=== PATIENT | female | born 1990 | race African-American/Black ===

== ENCOUNTER 2019-04-06 22:27 | Inpatient (IN) | payer MEDICAID ==
[~2019-04-06] VITALS: Ht 172.7 cm; Wt 52.6 kg
[2019-04-06 22:35] VITALS: Ht 172.7 cm; Wt 52.6 kg
--- NOTE | 2019-04-06 22:44 | NUR ---
RT CALLED TO BED 14 FOR TREATMENT
--- NOTE | 2019-04-06 22:59 | NUR ---
PT SITTING UP IN BED WITH BREATHING TRX IN PROGRESS. PER FAMILY, PT HAS HAD SORE THROAT WITH CONGESTED COUGH X 3 DAYS WITH SOB AND N/V STARTING THIS AM. FAMILY STATES NO RELIEF OF SYMPTOMS WITH MEDICATIONS AT HOME. FAMILY DENIES ANY DIARRHEA/CONSTIPATION, FEVER, OR URINARY PROBLEMS AT THIS TIME. PT NOTED WITH LABORED BREATHING. PT PLACED ON MONITOR. RT AT BEDSIDE.
[2019-04-06 23:49] LABS: CALCIUM 9.3 mg/dL (8.5-10.1); CARBON DIOXIDE 29.8 mmol/L (21-32); CREATININE SERUM 1.2 mg/dL (0.6-1.0); POTASSIUM SERUM 3.8 mmol/L (3.5-5.1)
[2019-04-06 23:59] LABS: ALBUMIN 4.1 g/dL (3.4-5.0); BILIRUBIN TOTAL 0.4 mg/dL (0.20-1.00); TOTAL PROTEIN, SERUM 8.9 g/dL (6.4-8.2)
[2019-04-07] VITALS (7 sets, daily range): BP systolic 124–154; BP diastolic 73–88
--- NOTE | 2019-04-07 | NUR ---
PT SITTING UP WITH BREATHING TRX IN PROGRESS. FAMILY AT BEDSIDE.
[2019-04-07 00:10] LABS: BASOPHIL % 0.2 % (0-2); PLATELET COUNT 294 x10^3mcL (130-400); RED CELL DISTRIBUTION WIDTH 14.8 % (11.5-14.5)
--- NOTE | 2019-04-07 01:04 | NUR ---
PT RESTING IN BED WITH EYES CLOSED WITH NO SIGNS OF DISTRESS. SISTER AT BEDSIDE.
[2019-04-07] MEDS ORDERED: ALBUTEROL0.63 MG/3 NEB (01:21)
--- NOTE | 2019-04-07 01:35 | NUR ---
REPORT GIVEN TO ALICIA MARTIN.
[2019-04-07 01:53] LABS: MAGNESIUM 1.9 mg/dL (1.8-2.4); PHOSPHOROUS 2.1 mg/dL (2.5-4.9)
--- NOTE | 2019-04-07 02:30 | NUR ---
PT RECIEVED FROM ED, VIA [facility] ACCOMPANIED BY NURSE. PT AMBULATED FROM [facility] TO BED. PT A/OX4, CALM AND COOPERATIVE. DENIES PAIN OR DISCOMFORT AT THIS TIME. TELE 13, SINUS TACH. DENIES CP, NV, DIZZINESS, OR PALPATATIONS. PALPABLE PULSES, NO EDEMA NOTED. BREATHING E/U ON 4L NC. ABD SOFT AND ROUND, DENIES PAIN TO PALPATION. IV TO LAC, INTACT. BED AT LOWEST POSITION. CALL LIGHT WITHIN REACH. WILL CONTINUE TO MONITOR.
--- NOTE | 2019-04-07 06:22 | NUR ---
PT RESTING AT SIDE OF BED AT THIS TIME. BREATHING E/U ON 4L NC. NO SIGNS OF ACUTE DISTRESS NOTED. WILL ENDORSE TO DAY NURSE.
[2019-04-07 06:33] LABS: PLATELET COUNT 293 x10^3mcL (130-400)
[2019-04-07 06:44] LABS: CALCIUM 8.8 mg/dL (8.5-10.1); CARBON DIOXIDE 23.3 mmol/L (21-32); CHLORIDE SERUM 100 mmol/L (98-107); CREATININE SERUM 1.1 mg/dL (0.6-1.0); GFR1 > 60 mL/min; GLUCOSE SERUM 216 mg/dL (74-106); MAGNESIUM 1.9 mg/dL (1.8-2.4); PHOSPHOROUS 2.9 mg/dL (2.5-4.9); POTASSIUM SERUM 4.2 mmol/L (3.5-5.1); SODIUM SERUM 134 mmol/L (136-145)
[2019-04-07 06:52] LABS: BASOPHIL % 0 % (0-2); RED CELL DISTRIBUTION WIDTH 15.2 % (11.5-14.5)
--- NOTE | 2019-04-07 07:25 | NUR ---
RECEIVED PT RESTING IN BED. NO ACUTE DISTRESS. AAOX4. RESP EVEN AND UNLABORED ON 4L NC. PT REPORTS FEELING "A LITTLE TIGHT" BUT MUCH BETTER. RT PROTOCOL. IV TO LAC, NO REDNESS OR SWELLING TO IV SITE. VISITOR AT BEDSIDE. BED IN LOW POSITION, CALL LIGHT WITHIN REACH. WILL CONTINUE TO MONITOR.
--- NOTE | 2019-04-07 11:30 | NUR ---
PT RESTING IN BED. NO ACUTE DISTRESS. GETTING BREATHING TREATMENT AT THIS TIME. RESP EVEN AND UNLABORED. RT PROTOCOL. IV TO LAC, NO REDNESS OR SWELLING NOTED. HOB ELEVATED. CALL LIGHT WITHIN REACH. WILL CONTINUE TO MONITOR.
--- NOTE | 2019-04-07 14:54 | NUR ---
Discount pharmacy card and list to low cost medical clinics given to patient by Rosalba Ring.
--- NOTE | 2019-04-07 15:38 | NUR ---
PT IN NO ACUTE DISTRESS. SLEEPING BUT AROUSABLE. BREATHING EVEN AND UNLABORED ON 4L NC AT REST. RT PROTOCOL. IV TO LAC, NO REDNESS OR SWELLING. HOB ELEVATED. CALL LIGHT WITHIN REACH. WILL CONTINUE TO MONITOR.
[2019-04-07 17:59] LABS: microscopic required? YES; urine erythrocyte 3+ (NEGATIVE)
--- NOTE | 2019-04-07 18:29 | NUR ---
PT SITTING UP IN BED. NO ACUTE DISTRESS. RESP EVEN AND UNLABORED ON 4L NC. RT PROTOCOL. IV TO LAC, NO REDNESS OR SWELLING TO IV SITE. FAMILY AT BEDSIDE. HOB ELEVATED. BED IN LOW POSITION, CALL LIGHT WITHIN REACH. WILL ENDORSE TO ONCOMING SHIFT.
--- NOTE | 2019-04-07 19:30 | NUR ---
PT RESTING IN BED AT THIS TIME. DENIES PAIN OR DISCOMFORT. BREATHING E/U ON 3L NC, TIRATED FROM 4. SPO2 96%. TELE 13, ST. DENIES CP, NV, DIZZINESS, AND PALPATATIONS. ABD SOFT AND ROUND, DENIES PAIN TO PALPATION. IV TO LAC, CDI. BED AT LOWEST POSITION. CALL LIGHT WITHIN REACH. WILL CONTINUE TO MONITOR.
[2019-04-08 04:23] VITALS: BP 139/83
[2019-04-08 06:23] LABS: BASOPHIL % 0.1 % (0-2); PLATELET COUNT 317 x10^3mcL (130-400)
--- NOTE | 2019-04-08 06:39 | NUR ---
PT RESTING IN BED AT THIS TIME. DENIES PAIN OR DISCOMFORT. BREATHING E/U ON RA. SP2 95. ALL NEEDS AND CONCERNS ADDRESSED THIS SHIFT. BED AT LOWEST POSITION. CALL LIGHT WITHIN REACH. WILL ENDORSE TO DAY.
[2019-04-08 06:55] LABS: CALCIUM 9.4 mg/dL (8.5-10.1); CARBON DIOXIDE 29.6 mmol/L (21-32); CHLORIDE SERUM 105 mmol/L (98-107); GFR1 > 60 mL/min; GLUCOSE SERUM 206 mg/dL (74-106); MAGNESIUM 2.6 mg/dL (1.8-2.4); POTASSIUM SERUM 4.7 mmol/L (3.5-5.1); SODIUM SERUM 141 mmol/L (136-145)
--- NOTE | 2019-04-08 07:26 | NUR ---
RECEIVED PT SITTING UP IN BED. REPORTS VERY SMALL AMOUNT OF EMESIS. PT OFFERED ICE CHIPS AND ANTI-NAUSEA MEDICATION BUT REFUSED AT THIS TIME. HOB ELEVATED. BREATHING EVEN AND UNLABORED ON RA. RT PROTOCOL. FAMILY AT BEDSIDE. BED IN LOW POSITION, CALL LIGHT WITHIN REACH. WILL CONTINUE TO MONITOR.
[2019-04-08 08:59] VITALS: BP 150/100
[2019-04-08] MEDS ORDERED: ADV250/50 INH (09:17)
[2019-04-08] MEDS ORDERED: MONTELUKAST SOD10 M1 PO (09:17)
[2019-04-08] MEDS ORDERED: PREDNISONE20 MG PO (09:18)
[2019-04-08] MEDS ORDERED: ROBL PO (09:18)
[2019-04-08] MEDS ORDERED: LEVOFLOXACIN500 M1 PO (09:19)
[2019-04-08 09:34] VITALS: BP 149/96
[2019-04-08 09:48] VITALS: BP 149/96
--- NOTE | 2019-04-08 10:57 | NUR ---
PT DISCHARGED TO HOME IN NO ACUTE DISTRESS. AWAKE, ALERT, AND ORIENTED. VSS. TRANSPORTED VIA WHEELCHAIR. PT WITH ELECTRONIC RX SENT TO PREFERRED PHARMACY. DISCHARGE EDUCATION PROVIDED, PT VERBALIZED UNDERSTANDING. INSTRUCTED PT TO FOLLOW UP WITH PCP. IV DC'D WITH CATHETER INTACT. TELE REMOVED. BELONGINGS WITH PT. DAISY DARLING ACCOMPANIED PT TO LOBBY.
== END 2019-04-08 10:59 | disposition home or self-care (01) | DRG 133 ==
LOC: ED 22:27 → DU 04-07 01:01
PROVIDERS: Emergency Medicine; ADMIT Internal Medicine
DX: J96.01 Acute respiratory failure with hypoxia (principal); J45.901 Unspecified asthma with (acute) exacerbation; N39.0 Urinary tract infection, site not specified; Z68.34 Body mass index [BMI] 34.0-34.9, adult
CPT/HCPCS: 36600; 87804; G0378; J0456; J2920; J2930; J7030; J7613; J7626; J7644; Q0092